=== PATIENT | female | born 1935 | race African-American/Black ===

== ENCOUNTER 2018-01-26 12:16 | Inpatient (IN) | payer MEDICARE ==
[~2018-01-26] VITALS: Ht 152.4 cm; Wt 96.2 kg
[2018-01-26] MEDS ORDERED: CLONIDINE 0.2MG TABLET PO ONE (12:45)
[2018-01-26 13:11] LABS: EOSINOPHILS % 1.6 % (0.0-5.0); HEMATOCRIT. 37.9 % (36.0-48.0); HEMOGLOBIN. 12.7 g/dL (12.0-16.0); LYMPHOCYTES % 32.5 % (20.0-50.0); MEAN CORPUSCULAR HEMOGLOBIN 31.5 pg (28.0-32.0); MEAN CORPUSCULAR VOLUME 94.1 fL (81.0-99.0); MEAN PLATELET VOLUME 8.9 fl (7.4-10.4); MONOCYTES % 7.1 % (2.0-8.0); NEUTROPHILS % 57.8 % (40.0-76.0); PLATELET 195 x1000/uL (130-400); RED BLOOD CELL COUNT 4.03 mill/uL (4.2-5.4); RED CELL DISTRIBUTION WIDTH 14.5 % (11.6-14.6)
[2018-01-26 13:23] LABS: CHLORIDE 110 mEq/L (98-107)
[2018-01-26 13:33] LABS: D-DIMER 3.24 mg/L FEU (<0.50); PARTIAL THROMBOPLASTIN TIME 26.4 sec (23.4-31.0); PROTHROMBIN TIME 10.4 sec (9.4-11.6)
[2018-01-26] MEDS ORDERED: IOHEXOL-350 100 ML BOTTLE ONE (17:29)
[2018-01-26 20:00] VITALS: BP 210/93
[2018-01-26] MEDS ORDERED: CLONIDINE 0.1MG TABLET PO PRN (22:15)
[2018-01-26] MEDS ORDERED: NITROGLYCERIN 0.4MG TABLET SL SL PRN (23:00)
[2018-01-26] MEDS ORDERED: REGADENOSON 0.4 MG/5 ML IV ONE (23:00)
[2018-01-26 23:08] VITALS: BP 210/93
[2018-01-26] MEDS: CLONIDINE 0.2MG TABLET PO SCH (23:13)
[2018-01-26] MEDS ORDERED: ENOXAPARIN 40MG/0.4ML SYR SUBCUT SCH (23:30)
[2018-01-27] VITALS: BP 175/84
[2018-01-27 04:00] VITALS: BP 175/84
[2018-01-27] MEDS ORDERED: ERGO500013 PO (04:11)
[2018-01-27] MEDS ORDERED: COR12 PO (04:11)
[2018-01-27] MEDS ORDERED: ASPI-1159 PO (04:11)
[2018-01-27] MEDS ORDERED: CLON0.2T PO (04:11)
[2018-01-27 06:08] LABS: CREATINE KINASE 61 IU/L (26-192); CREATINE KINASE MB FRACTION 0.8 ng/mL (0.5-3.6); HDL CHOLESTEROL 42 mg/dL (40-59); LDL CHOLESTEROL 105 mg/dL (5-100)
[2018-01-27] MEDS: CLONIDINE 0.2MG TABLET PO SCH (08:36)
[2018-01-27] MEDS ORDERED: CARVEDILOL 12.5MG TABLET PO SCH (09:00)
[2018-01-27] MEDS ORDERED: ASPIRIN 81MG EC TABLET PO SCH (09:00)
[2018-01-27] MEDS ORDERED: PANTOPRAZOLE SODIUM 40 MG/VIAL IV SCH (09:00)
[2018-01-27] MEDS ORDERED: REGADENOSON 0.4 MG/5 ML IV ONE (10:09)
[2018-01-27 15:16] LABS: CREATINE KINASE 72 IU/L (26-192); CREATINE KINASE MB FRACTION 0.7 ng/mL (0.5-3.6)
[2018-01-27 16:00] VITALS: BP 161/86
[2018-01-27 16:31] VITALS: BP 161/86
[2018-01-27] MEDS ORDERED: CLONIDINE 0.3MG TABLET PO SCH (17:00)
[2018-01-29] MEDS ORDERED: ERGOCALCIFEROL 50000UNITS CAPSULE PO SCH (09:00)
== END 2018-01-27 17:25 | disposition home or self-care (01) | DRG 392 ==
LOC: ER 12:27 → 5WST 15:49 → EDBEDREQTM 15:50 → EDBEDREQ 15:50 → ENRESERV 19:52
PROVIDERS: ADMIT Internal Medicine Pulmonary Disease; ATTEND Internal Medicine Pulmonary Disease
DX: K21.9 Gastro-esophageal reflux disease without esophagitis (principal); I45.10 Unspecified right bundle-branch block; I11.9 Hypertensive heart disease without heart failure; E66.9 Obesity, unspecified; I25.10 Atherosclerotic heart disease of native coronary artery without angina pectoris; N28.89 Other specified disorders of kidney and ureter; R00.0 Tachycardia, unspecified; I25.2 Old myocardial infarction; Z79.82 Long term (current) use of aspirin; Z82.49 Family history of ischemic heart disease and other diseases of the circulatory system; Z83.3 Family history of diabetes mellitus; Z90.710 Acquired absence of both cervix and uterus; Z95.5 Presence of coronary angioplasty implant and graft; Z90.49 Acquired absence of other specified parts of digestive tract; Z79.899 Other long term (current) drug therapy; Z80.8 Family history of malignant neoplasm of other organs or systems; Z88.0 Allergy status to penicillin
CPT/HCPCS: 36415; 71045; 71275; 78452; 80053; 80061; 82550; 82553; 83690; 83880; 84443; 84484; 85025; 85379; 85610; 85730; 93005; 93017; 99285; A9500; C9113; J1650; J2785; Q9967